=== PATIENT | female | born 1950 | race Asian ===

== ENCOUNTER 2023-05-30 11:22 | Outpatient (AMB) | payer OTHER, SELFPAY ==
--- NOTE | 2023-05-30 11:32 | A.OFFVIS_ITS ---
Intake VS Expanded 05/30/23 11:35 06/07/23 09:26 Height 5 ft 5 ft Weight 319 lb 14.252 oz 320 lb BMI 62.5 62.5 Intake Visit Reasons: DM, obesity Allergies No Known Allergies [No Known Allergies*] Allergy (Unverified 05/05/20 16:46) pt states no food/medication a Allergy (Unknown, Uncoded 02/11/19 00:00) HPI Nutrition Presentation Details Pt presents for MNT for obesity. The Pt was referred by Dr. Yonny Aguilar from [facility]. The Pt also has T2DM, Pt reports she is on on ozempic 1 mg/week , Lantus 20 units, Meals are typically prepared by self Meals consist of 8:30 am Breakfast meals : eggs ( 2 eggs) olive oil and cucumber with toast bread [place] oat bread 1/4 of loaf and white cheese , water 1:30 pm: cauliflower spinach, egg plant with bread or rice/ egg noodles and meat or chicken , fish , (beef stew with canola oil ) , water fruit or crackers, popcorn 7 pm same as lunch or cheese /bread/cucu mber yogurt kefir popcorn smoking/etoh denies Pt reports taking vitamin d3, b12 and iron , calcium denies diarrhea or constipation : has daily bowel movement. fruits /d: 0-1 non starchy ve servings/d prot: poultry/eggs/beef/cheese 10 oz/d dairy: mostly from cheese, yogurt physical activity: sedentary reated to osteoarthritis both knees DIB-Tsyzkru-Jb.Jeor Equation Height 5 ft Weight 320 lb Resting Metabolic Rate 1877.46 Calculated Activity Level Sedentary Calories Needed to Maintain Weight 2252.95 Diagnosis Nutrition problem #1 excessive energy intake As related to (etiology) #1 diagnosis As evidenced by (sign/symptom) #1 high BMI (62.5 on 05/2023) Monitoring/Goals Nutrition problem monitoring total PRO intake, weight and oral fluids Outcome progress verbalized understanding Learning/Education Readiness to learn good Stages of change contemplation Educational materials provided Yes (meal planning) Most Recent Diabetes Results: Hemoglobin A1c 6.5 % 02/03/19 Microalb/Creat Ratio 147.0 ug/mg cr 08/28/18 Cholesterol 154 MG/DL 02/03/19 HDL Cholesterol 61 MG/DL 02/03/19 Triglycerides 50 MG/DL 02/03/19 Creatinine 0.76 MG/DL (0.5-1.4) 02/03/19 Blood Urea Nitrogen 27 MG/DL (9-16) H 02/03/19 Sodium 141 MMOL/L (135-145) 02/03/19 Potassium 5.0 MMOL/L (3.3-5.1) 02/03/19 Chloride 103 MMOL/L (96-108) 02/03/19 Calcium 9.7 MG/DL (8.4-10.2) 02/03/19 AST 10 U/L (5-31) 02/03/19 ALT 8 U/L (0-31) 02/03/19 Total Protein 7.0 G/DL (6.5-8.0) 02/03/19 Albumin 4.4 G/DL (3.5-5.0) 02/03/19 [facility] Medical History (Updated 06/07/23 @ 09:36 by Reina Suárez, RD, LDN) HTN (hypertension) Osteoarthritis of both knees CORTNEY (obstructive sleep apnea) Vitamin D deficiency Assessment & Plan Assessment & Plan (1) Morbid obesity with BMI of 60.0-69.9, adult: Code(s): E66.01 - Morbid (severe) obesity due to excess calories; Z68.44 - Body mass index [BMI] 60.0-69.9, adult Plan: wt: 145 kg Est kcal needs as per MSJ: 2250 (40% carb, 30% protein/fat) Est fluid needs as per 25-30 ml/d: 3625 - 4363 Est prot per day as per 1 g/kg bw: 145 Recommend fiber intake : 8-10 g per day and gradually increase to 25-28 g per day for women and 35-38 g for men or as tolerated Recommend sodium intake per day : less than 1500 mg less than 2000 mg Educated patient on: ( R = reviewed V = verbalizes understanding N/R = needs review N/A = not applicable * Food sources of carbohydrate, adequate serving sizes and its role in various health conditions: R * Differences between complex carbohydrates a simple carbohydrates, role of fiber in diet: R * food sources of protein : R * Importance of fluid intake:R * MIndful eating strategies: R * Differences between types of fats and role in diet (mono on saturated fat fatty acids, saturated fatty acids, trans fats): NR * Food sources of sodium in salt and healthy modifications for heart health in kidney health: NR * Vitamins and minerals: R * Healthy plate method concept: R = * Physical activity: Benefits a precaution: NR * Hypoglycemia protocol (rule of 15): R - rule of 15, contacting PCP if developing hypoglycemia for further assessment (2) T2DM (type 2 diabetes mellitus): Code(s): E11.9 - Type 2 diabetes mellitus without complications Patient Instructions: Practice mindful eating strategies Have 4-5 small meals per day including 20-30 g of protein and choosing high fiber foods, following healthy plate method Keep hydrated by having water with meals snack Monitor your blood sugar , follow rule of 15 if developing low blood sugar and report blood sugar episodes with your doctor for further assessment. Coding Level of Care Code Nutr Indiv Intake (61760) Diagnoses Morbid obesity with BMI of 60.0-69.9, adult E66.01; Z68.44 T2DM (type 2 diabetes mellitus) E11.9 Time Spent (min) 30
[2023-05-30 11:35] VITALS: BMI 62.5
[2023-06-07 09:26] VITALS: BMI 62.5
== END 2023-05-30 12:29 | disposition home or self-care (01) ==
PROVIDERS: Visit Provider Dietitian, Registered
DX: E66.01 Morbid (severe) obesity due to excess calories (principal); Z68.44 Body mass index [BMI] 60.0-69.9, adult; E11.9 Type 2 diabetes mellitus without complications

== ENCOUNTER → 2023-05-30 11:22 | Outpatient (BNVA) | payer MEDICARE, MEDICAID, SELFPAY | PROVIDERS: Visit Provider Dietitian, Registered | DX: E66.01 Morbid (severe) obesity due to excess calories (principal); Z68.44 Body mass index [BMI] 60.0-69.9, adult; E11.9 Type 2 diabetes mellitus without complications; Z71.3 Dietary counseling and surveillance | CPT/HCPCS: 97802 ==

== ENCOUNTER → 2023-06-19 13:40 | Outpatient (BNVA) | payer OTHER, SELFPAY | PROVIDERS: Visit Provider Physician Assistant ==

== ENCOUNTER 2023-07-29 08:32 | Outpatient (AMB) | payer OTHER, SELFPAY ==
--- NOTE | 2023-07-29 11:53 | A.OFFVIS_ITS ---
Intake VS Expanded 07/29/23 12:13 Height 5 ft Weight 309 lb 4 oz BMI 60.4 Body Fat % 51.2 Body Fat Mass 158.2 Fat Free Mass 151 Visceral Fat Rating 25 Body Water % 34.5 Body Water Mass 106.8 Basal Metabolic Rate/Score 2,169 Intake Visit Reasons: [employer] BMI 60.4 Allergies No Known Allergies [No Known Allergies*] Allergy (Verified 07/29/23 11:55) Medication List - Last Reconciled 07/29/23 by Harrison Vega MD aspirin 81 mg PO DAILY empagliflozin (Jardiance) 25 mg PO DAILY ferrous sulfate 325 mg PO BID insulin glargine (Lantus Solostar U-100 Insulin) 20 units subcut QAM magnesium chloride 70 mg PO DAILY metformin 1,000 mg PO BID metoprolol succinate ER 12.5 mg PO DAILY semaglutide (Ozempic) 1 mg subcut QWEEK simvastatin 10 mg PO BEDTIME valsartan 40 mg PO DAILY [viatmin b12 PO] [vitamin d 3 PO] HPI [employer] BMI 60.4 HPI Details Start time: 11.45am, End time: 12.31pm ?I spent 41 minutes speaking with the patient on the phone plus an additional 5 minutes reviewing and updating records for a total of 46 minutes HPI Comments History of Present Illness Details Previous weight loss efforts: [facility] weight loss program Wakes up: 6am, Sleeps: 8pm Breakfast: 8am (eggs or cheese, or yogurt) Lunch: 1pm (beef or chicken) Dinner: 6pm (as lunch) Snacks: 10am (fruit), 3pm (nuts,yogurt) Exercise: none Fluids: coffee: none, tea: none, soda: none, juice: none, ETOH: none PFSH Medical History (Updated 07/29/23 @ 12:13 by Harrison Vega MD) Lower extremity edema Hyperlipidemia HTN (hypertension) Osteoarthritis of both knees CORTNEY (obstructive sleep apnea) Vitamin D deficiency Surgical History (Updated 06/19/23 @ 14:02 by Susana Castellanos CMA) Hx of eye surgery Hx of hysterectomy, total Hx of hernia repair Social History (Updated 06/19/23 @ 14:02 by Susana Castellanos CMA) Alcohol intake: never Patient Tobacco Use Status: Never used Tobacco Assessment & Plan Assessment & Plan (1) Morbid obesity with BMI of 60.0-69.9, adult: Code(s): E66.01 - Morbid (severe) obesity due to excess calories; Z68.44 - Body mass index [BMI] 60.0-69.9, adult Plan: 1.? Plan for lap sleeve gastrectomy. If diaphragmatic or ventral hernias are present at time of surgery, these will be repaired laparoscopically as well. Risks and complications were discussed in detail including possible conversion to an open procedure, anastomotic leak, bleeding requiring transfusion, small bowel obstruction, , DVT and pulmonary embolism, cardiac, or pulmonary complications, as supervisor intermediates complications such as anastomotic ulcer, insufficient weight loss and vitamin deficiencies. I emphasized the importance of close follow-up, adherence to instructions and good communication. 2. Nutritional counseling. Start with 2 CELEBRATE REBUILD protein (buy at [facility] [employer]) shakes (ONE scoop EACH in 8oz low fat unsweetened coconut milk each) at 7am-9am and 10am-12pm, 2 protein bars (CELEBRATE protein bars, buy at [facility] [employer]) at 1pm-3pm and 4pm-6pm, dinner at 7pm (12 forks of protein and 12 forks of salad/vegetables). So you do 2 protein shakes, 2 protein bars and one meal per day. Meal to include lean meat (beef, fish, pork, turkey, chicken), or belarusian yogurt, or egg whites, or beans with a salad with olive oil and fruits (berries, pears, apples, kiwi). Avoid salt, breads, potatoes, rice, pasta, desserts. 3. Each shake would be drunk slowly, like coffee in a period of 2 hours. 4. Cut each bar in 4 pieces and eat each piece in 30min ?to make each bar last 2 hours. 5. I emphasized the importance of measuring accurately the food portion and measure it when serving the food in plate 6. The meal portions include 12 full-size forks of meat and 12 full-size forks of salad. You always eat the meat portion but you can replace up to 6 forks for salad/vegetables with rice, potatoes or pasta, or a fruit ?if you like. The less you do it the better weight loss will be. 7. One full-size fork is what it can be scooped on the fork without falling aside and not what can be bit with the fork. Use regular forks like those you find in a typical restaurant. 8.? Please send me weight measurements as soon as possible and then once a week. Always include your diet and exercise plan. 9. The best choice would be to purchase a stationary bike at home that can track calories. If you do start using it for 10 minutes, three times per day daily and track the calories you burn on the bike per day 10.?Goal is to lose at least 1.5-2lbs per week 11. Goal to lose 10% of your weight before surgery, which is about 30lbs. Ultimate weight goal: 279lbs before surgery 12.?Please measure your blood sugars daily and let me know if they fall below 100 so I can adjust your medications. 13.?Please measure your blood pressure daily and let me know if it?falls below 120/70 so I can adjust your medications. 14. Please follow the diet plan exactly without any change. If you don't like something about the plan or you feel hungry you need to communicate with me so I can help you revise the plan. You should not change the plan yourself. Orders: Orders Insulin Today E11.9 - Type 2 diabetes mellitus without complications, E66.01 - Morbid (severe) obesity due to excess calories, Z68.44 - Body mass index [BMI] 60.0-69.9, adult IRON PROFILE Today E11.9 - Type 2 diabetes mellitus without complications, E66.01 - Morbid (severe) obesity due to excess calories, Z68.44 - Body mass index [BMI] 60.0-69.9, adult Comprehensive Met. Panel Today E11.9 - Type 2 diabetes mellitus without complications, E66.01 - Morbid (severe) obesity due to excess calories, Z68.44 - Body mass index [BMI] 60.0-69.9, adult Vitamin B12 and Folate Today E11.9 - Type 2 diabetes mellitus without complications, E66.01 - Morbid (severe) obesity due to excess calories, Z68.44 - Body mass index [BMI] 60.0-69.9, adult TSH reflex Free T4 Today E11.9 - Type 2 diabetes mellitus without complications, E66.01 - Morbid (severe) obesity due to excess calories, Z68.44 - Body mass index [BMI] 60.0-69.9, adult Ferritin Today E11.9 - Type 2 diabetes mellitus without complications, E66.01 - Morbid (severe) obesity due to excess calories, Z68.44 - Body mass index [BMI] 60.0-69.9, adult Vitamin D 25-OH Total Today E11.9 - Type 2 diabetes mellitus without complications, E66.01 - Morbid (severe) obesity due to excess calories, Z68.44 - Body mass index [BMI] 60.0-69.9, adult US abdomen comp w elastography Today E11.9 - Type 2 diabetes mellitus without complications, E66.01 - Morbid (severe) obesity due to excess calories, Z68.44 - Body mass index [BMI] 60.0-69.9, adult ECG 12 lead EKG Today E11.9 - Type 2 diabetes mellitus without complications, E66.01 - Morbid (severe) obesity due to excess calories, Z68.44 - Body mass index [BMI] 60.0-69.9, adult Hemoglobin A1c Today E11.9 - Type 2 diabetes mellitus without complications, E66.01 - Morbid (severe) obesity due to excess calories, Z68.44 - Body mass index [BMI] 60.0-69.9, adult H Pylori Breath Test Today E11.9 - Type 2 diabetes mellitus without complications, E66.01 - Morbid (severe) obesity due to excess calories, Z68.44 - Body mass index [BMI] 60.0-69.9, adult Complete Blood Count Auto Diff Today E11.9 - Type 2 diabetes mellitus without complications, E66.01 - Morbid (severe) obesity due to excess calories, Z68.44 - Body mass index [BMI] 60.0-69.9, adult Lipid Panel Today E11.9 - Type 2 diabetes mellitus without complications, E66.01 - Morbid (severe) obesity due to excess calories, Z68.44 - Body mass index [BMI] 60.0-69.9, adult Zinc Today E11.9 - Type 2 diabetes mellitus without complications, E66.01 - Morbid (severe) obesity due to excess calories, Z68.44 - Body mass index [BMI] 60.0-69.9, adult C Reactive Protein Today E11.9 - Type 2 diabetes mellitus without complications, E66.01 - Morbid (severe) obesity due to excess calories, Z68.44 - Body mass index [BMI] 60.0-69.9, adult Vitamin B1 Today E11.9 - Type 2 diabetes mellitus without complications, E66.01 - Morbid (severe) obesity due to excess calories, Z68.44 - Body mass index [BMI] 60.0-69.9, adult Vitamin A Today E11.9 - Type 2 diabetes mellitus without complications, E66.01 - Morbid (severe) obesity due to excess calories, Z68.44 - Body mass index [BMI] 60.0-69.9, adult XR chest 2V Today E11.9 - Type 2 diabetes mellitus without complications, E66.01 - Morbid (severe) obesity due to excess calories, Z68.44 - Body mass index [BMI] 60.0-69.9, adult FL upper GI w air Today E11.9 - Type 2 diabetes mellitus without complications, E66.01 - Morbid (severe) obesity due to excess calories, Z68.44 - Body mass index [BMI] 60.0-69.9, adult Referrals Behavioral Health Referral E11.9 - Type 2 diabetes mellitus without comp lications, E66.01 - Morbid (severe) obesity due to excess calories, Z68.44 - Body mass index [BMI] 60.0-69.9, adult Nutrition/Dietitian Referral E11.9 - Type 2 diabetes mellitus without complications, E66.01 - Morbid (severe) obesity due to excess calories, Z68.44 - Body mass index [BMI] 60.0-69.9, adult Telehealth Telehealth Location of provider rendering services: practice address Location of patient: address on file Patient Identification confirmed using: Name, : Yes Telehealth method: voice only Patient verbally consented to treatment: Yes Patient verbally consented to billing insurance company: Yes Patient informed of any privacy concerns related to visit: Yes Minutes spent on Phone/Video with Pt.: 46 Coding Level of Care Code Tele [facility] Pt Level 4 (70972) Diagnoses Morbid obesity with BMI of 60.0-69.9, adult E66.01; Z68.44 Time Spent (min) 46
[2023-07-29 12:13] VITALS: BMI 60.4
== END 2023-07-29 12:32 | disposition home or self-care (01) ==
PROVIDERS: Visit Provider Surgery
DX: E66.01 Morbid (severe) obesity due to excess calories (principal); Z68.44 Body mass index [BMI] 60.0-69.9, adult
CPT/HCPCS: 99204

== ENCOUNTER → 2023-07-29 08:32 | Outpatient (BNVA) | payer OTHER, SELFPAY | PROVIDERS: Visit Provider Surgery ==